=== PATIENT | male | born 1955 | race African-American/Black ===

== ENCOUNTER 2018-07-26 14:33 | Inpatient (IN) | payer OTHER ==
[2018-07-26] MEDS ORDERED: NACL 0.9% 1000 ML 1,000 ML IV ONE ×2 (14:46→16:30)
[2018-07-26] MEDS ORDERED: TYLENOL FEEDTUBE ONE (14:48)
--- NOTE | 2018-07-26 14:51 | Emergency Department Report ---
HPI - General Time Seen by Provider: 07/26/18 14:46 - HPI HPI: Room 1 The patient is a 62-year-old male presenting with chief complaint of dislodged trach tube. Patient presents to the ED after accidentally pulling out his tracheostomy tube. Patient denies complaints Location: [See above] Duration: [See above] Quality: [See above] Severity: [See above] Modifying factors: [see above] Context: [see above] Mode of transportation: [not driving] ED Past Medical Hx - Past Medical History Previous Medical History?: Yes Hx CVA: Yes Hx Heart Attack/AMI: Yes Additional medical history: metastatic brain cancer - Surgical History Past Surgical History?: Yes Additional Surgical History: tracheostomy. PEG tube - Family History Family history: no significant - Social History Smoking Status: Unknown if ever smoked Substance Use Type: None ED Review of Systems ROS: Stated complaint: TRACHEOSTOMY REPLACEMENT Other details as noted in HPI Constitutional: no symptoms reported Eyes: denies: eye pain ENT: denies: throat pain Respiratory: no symptoms reported Cardiovascular: denies: chest pain Endocrine: no symptoms reported Gastrointestinal: denies: abdominal pain Genitourinary: denies: dysuria Musculoskeletal: denies: back pain Neurological: denies: headache Physical Exam - Physical Exam Vital Signs: Vital Signs 07/26/18 14:35 Temperature 100.3 F H Pulse Rate 104 H Respiratory 11 L Rate Blood Pressure 94/58 O2 Sat by Pulse 96 Oximetry Physical Exam: GENERAL: The patient is well-developed well-nourished male lying on stretcher not appearing to be in acute distress. [] HEENT: Normocephalic. Atraumatic. Extraocular motions are intact. Patient has moist mucous membranes. NECK: Supple. Tracheostomy stoma patent CHEST/LUNGS: Clear to auscultation. There is no respiratory distress noted. HEART/CARDIOVASCULAR: Regular. There is tachycardia. There is no gallop rub or murmur. ABDOMEN: Abdomen is soft, nontender. Patient has normal bowel sounds. There is no abdominal distention. SKIN: There is no rash. There is no edema. There is no diaphoresis. NEURO: The patient is awake, alert, and oriented. The patient is cooperative. The patient has no focal neurologic deficits. The patient has normal speech MUSCULOSKELETAL: There is no evidence of acute injury. ED Course Vital Signs 07/26/18 14:35 Temperature 100.3 F H Pulse Rate 104 H Respiratory 11 L Rate Blood Pressure 94/58 O2 Sat by Pulse 96 Oximetry - Reevaluation(s) Reevaluation #1: 07/26/18 16:24 Informed by nursing the patient's blood pressure has decreased to 70s systolic - Consultations Consultation #1: 07/26/18 18:11 [facility] paged 07/26/18 18:[address] Owen of [facility]- may admit the patient at [facility] - Central Line Placement Right Femoral Consent Obtained: verbal consent Time Out Performed: No Patient Placed on Monitor/Pulse Ox: Yes MD Prep: mask, gown, gloves Central Line Prep: Chlorhexidine scrub Local Anesthesia Used: Lidocaine 1% Amount of Anesthesia Used (mls): 5 Ultrasound Used for Placement: No Central Line Lumen Inserted: triple Central Line Position: good blood return (from brown port only), other (brown port flushed and 2. Blue and white ports unable to withdraw blood or flush. Ports) Dressing Applied: Tegaderm Patient Tolerated Procedure: no complications Complications: none ED Medical Decision Making - Lab Data Result diagrams: 07/26/18 14:59 07/26/18 14:59 Laboratory Tests 07/26/18 07/26/18 07/26/18 14:59 14:59 16:29 WBC 9.6 RBC 3.75 Hgb 10.2 L Hct 31.9 L MCV 85 MCH 27 L MCHC 32 RDW 17.2 H Plt Count 320 Lymph % (Auto) 10.2 L Reynolds % (Auto) 15.0 H Eos % (Auto) 0.1 Baso % (Auto) 0.1 Lymph # 1.0 L Reynolds # 1.4 H Eos # 0.0 Baso # 0.0 Seg Neutrophils % 74.6 H Seg Neutrophils # 7.2 Sodium 138 Potassium 4.6 Chloride 98.0 Carbon Dioxide 34 H Anion Gap 11 BUN 19 Creatinine 0.5 L Estimated GFR > 60 BUN/Creatinine Ratio 38 Glucose 100 Lactic Acid 0.80 Calcium 8.0 L Urine Color Urine Turbidity Urine pH Ur Specific [place] Urine Protein Urine Glucose (UA) Urine Ketones Urine Blood Urine Nitrite Urine Bilirubin Urine Urobilinogen Ur Leukocyte Esterase Urine WBC (Auto) Urine RBC (Auto) U Epithel Cells (Auto) Urine Bacteria (Auto) Urine Mucus 07/26/18 17:40 WBC RBC Hgb Hct MCV MCH MCHC RDW Plt Count Lymph % (Auto) Reynolds % (Auto) Eos % (Auto) Baso % (Auto) Lymph # Reynolds # Eos # Baso # Seg Neutrophils % Seg Neutrophils # Sodium Potassium Chloride Carbon Dioxide Anion Gap BUN Creatinine Estimated GFR BUN/Creatinine Ratio Glucose Lactic Acid Calcium Urine Color [place] Urine Turbidity Cloudy Urine pH 6.0 Ur Specific [place] 1.029 Urine Protein 30 mg/dl Urine Glucose (UA) Neg Urine Ketones Tr Urine Blood Neg Urine Nitrite Neg Urine Bilirubin Neg Urine Urobilinogen 2.0 Ur Leukocyte Esterase Mod Urine WBC (Auto) 33.0 H Urine RBC (Auto) 2.0 U Epithel Cells (Auto) 1.0 Urine Bacteria (Auto) 4+ Urine Mucus 3+ - Radiology Data Radiology results: report reviewed (chest x-ray), image reviewed (chest x-ray) interpreted by me: Chest x-ray-right lower lobe haziness consistent with pneumonia [facility] [address] [place] [address] XRay Report Signed Patient: VALENTIN SANTILLAN MR#: [id number] : 1955 Acct:[id number] Age/Sex: 62 / M ADM Date: 07/26/18 Loc: ED Attending Dr: Ordering Physician: MEEK CRUZ MD Date of Service: 07/26/18 Procedure(s): XR chest 1V ap Accession Number(s): [id number] cc: MEEK CRUZ MD Fluoro Time In Minutes: PROCEDURE: XR CHEST 1V AP TECHNIQUE: Single view chest HISTORY: s/p trach tube replacement COMPARISONS: None FINDINGS: Tracheostomy tube with adequate position. Trachea midline. Heart size top normal. Atherosclerotic change aorta Coarse generalized interstitial prominence. Patchy airspace disease right base. Blunting right costophrenic sulcus. No pneumothorax. Skinfold over the right apex. No pneumomediastinum. Generalized osteopenia IMPRESSION: Tracheostomy tube with adequate position Coarse generalized interstitial prominence Patchy airspace disease right base Trace right effusion. This document is electronically signed by Ruiz Lehman MD., July 26 2018 04:28:02 PM ET Transcribed By: HJ Dictated By: RUIZ LEHMAN MD Electronically Authenticated By: RUIZ LEHMAN MD Signed Date/Time: 07/26/18 1629 DD/ 162 TD/TT: 07/26/18 162 Critical care attestation.: If time is entered above; I have spent that time in minutes in the direct care of this critically ill patient, excluding procedure time. ED Disposition Clinical Impression: Complication of tracheostomy tube, Pneumonia, Sepsis Disposition: OP ADMIT IP TO THIS HOSP Is pt being admited?: Yes Does the pt Need Aspirin: No Condition: Fair Instructions: Bacterial Pneumonia (ED) Time of Disposition: 18:24 (hospitalist notified (Dr Cassdiy))
[2018-07-26 15:39] LABS: Basophils % (Auto) 0.1 % (0.0-1.8); Eosinophils % (Auto) 0.1 % (0.0-4.3); Hematocrit 31.9 % (35.5-45.6); Hemoglobin 10.2 gm/dl (11.8-15.2); Lymphocytes % (Auto) 10.2 % (13.4-35.0); Mean Corpuscular HGB Conc 32 % (32-34); Mean Corpuscular Volume 85 fl (84-94); Monocytes # (Auto) 1.4 K/mm3 (0.0-0.8); Platelet Count 320 K/mm3 (140-440); Red Blood Count 3.75 M/mm3 (3.65-5.03); Red Cell Distribution Width 17.2 % (13.2-15.2)
[2018-07-26 15:53] LABS: BUN/Creatinine Ratio 38; Blood Urea Nitrogen 19 mg/dL (9-20); Hemolysis Index 0
[2018-07-26] MEDS ORDERED: ROCEPHIN/NS 1 GM/50 ML 1 GM/50 ML BAG IV ONE (16:23)
--- NOTE | 2018-07-26 16:29 | XRay Report ---
PROCEDURE: XR CHEST 1V AP TECHNIQUE: Single view chest HISTORY: s/p trach tube replacement COMPARISONS: None FINDINGS: Tracheostomy tube with adequate position. Trachea midline. Heart size top normal. Atherosclerotic change aorta Coarse generalized interstitial prominence. Patchy airspace disease right base. Blunting right costophrenic sulcus. No pneumothorax. Skinfold over the right apex. No pneumomediastinum. Generalized osteopenia IMPRESSION: Tracheostomy tube with adequate position Coarse generalized interstitial prominence Patchy airspace disease right base Trace right effusion. This document is electronically signed by Ruiz Contreras MD., July 26 2018 04:28:02 PM ET
[2018-07-26] MEDS ORDERED: LEVOPHED DRIP 4 MG/NS 250 ML 4 MG/250 ML BAG IV ONE ×2 (17:25→17:28)
[2018-07-26] MEDS ORDERED: ZITHROMAX 500 MG in NACL 0.9% 250ML 250 ML IV ONE (18:00)
[2018-07-26 18:01] LABS: Bacteria,Urine 4+ /HPF (Negative); Bilirubin,Urine NEG (Negative); Blood,Urine NEG (Negative); Color,Urine Amber (Yellow); Mucus,Urine 3+ /HPF
[2018-07-26] MEDS ORDERED: SODIUM CHLORIDE FLUSH SYRINGE 10 ML IV PRN (18:54)
--- NOTE | 2018-07-26 18:56 | History and Physical Report ---
History of Present Illness Chief complaint: Unresponsive History of present illness: 62 YO Male with Chronic Respiratory Failure S/P Trach and PEG Placement, Severe Malnutrition, CVA, Debility, Contracture, Metastatic Brain Cancer present to ED for evaluation. Pt is unresponsive, and in a vegetative state and unable to provide history. Pt history taken from ED staff. As per staff, the patient accidentally pulled out his trach today. EMS notified and patient transported to [facility]. Pt seen and evaluated in ED and found to have Acute on Chronic Respiratory Failure with secretions in his oral pharynx. Pt subsequently became hypotensive with systolic blood pressure in the 70's. Pt found to have suspected Aspiration Pneumonia as well as UTI, Encephalopathy. Pt admitted to ICU and initiated on Pneumonia protocol, and initiated on IV pressor support. No prior admissions for review. No medications listed for reconciliation at time of admission. - Past History Past Medical History: cancer, stroke, other (respiratory failure) Past Surgical History: Other (Trach/Peg) Social history: . denies: smoking, alcohol abuse, prescription drug abuse Family history: no significant family history (reviewed) Medications and Allergies Allergies Allergy/AdvReac Type Severity Reaction Status Date / Time Unable to Assess Allergy Verified 07/26/18 14:35 Active Meds: Active Medications Norepinephrine (Levophed Drip 4 Mg/Ns 250 Ml) 4 mg in 250 mls @ 7.5 mls/hr IV TITR ONE; Protocol Stop: 07/28/18 02:44 Last Titration: 07/26/18 18:32 Dose: 4 mcg/min, 15 mls/hr Documented by: Azithromycin 500 mg/ Sodium (Chloride) 250 mls @ 250 mls/hr IV ONCE ONE Stop: 07/26/18 18:59 Sodium Chloride (Sodium Chloride Flush Syringe 10 Ml) 10 ml IV BID ROSALIA Sodium Chloride (Sodium Chloride Flush Syringe 10 Ml) 10 ml IV PRN PRN PRN Reason: LINE FLUSH Review of Systems ROS unobtainable: due to mental status Exam - Constitutional Vitals: Temp Pulse Resp BP Pulse Ox 98.2 F 71 9 L 81/53 99 07/26/18 16:38 07/26/18 18:46 07/26/18 18:46 07/26/18 18:46 07/26/18 18:46 General appearance: Present: severe distress - EENT Eyes: Present: miosis ENT: hearing decreased - Neck Neck: Present: supple, normal ROM - Respiratory Respiratory effort: labored Respiratory: bilateral: diminished, rhonchi - Cardiovascular Rhythm: other (hypotensive/tachycardic) Heart Sounds: Present: S1 & S2. Absent: rub, click Peripheral Pulses: abnormal - Abdominal General gastrointestinal: Present: soft, non-distended, other (schaphoid, PEG in place) - Integumentary Integumentary: Present: clear, clammy, decreased turgor - Musculoskeletal Musculoskeletal: generalized weakness - Psychiatric Psychiatric: no appropriate mood/affect, no intact judgment & insight, no memory intact - Neurologic Neurologic: no CNII-XII intact, focal deficits, no moves all extremities, no gait normal Results - Labs CBC & Chem 7: 07/27/18 06:33 07/27/18 06:29 Labs: Abnormal lab results 07/26/18 07/26/18 07/26/18 Range/Units 14:59 14:59 17:40 Hgb 10.2 L (11.8-15.2) gm/dl Hct 31.9 L (35.5-45.6) % MCH 27 L (28-32) pg RDW 17.2 H (13.2-15.2) % Lymph % (Auto) 10.2 L (13.4-35.0) % Worth % (Auto) 15.0 H (0.0-7.3) % Lymph # 1.0 L (1.2-5.4) K/mm3 [place] # 1.4 H (0.0-0.8) K/mm3 Seg Neutrophils % 74.6 H (40.0-70.0) % Carbon Dioxide 34 H (22-30) mmol/L Creatinine 0.5 L (0.8-1.5) mg/dL Calcium 8.0 L (8.4-10.2) mg/dL Urine WBC (Auto) 33.0 H (0.0-6.0) /HPF Assessment and Plan - Patient Problems (1) Sepsis Current Visit: Yes Status: Acute Plan to address problem: Admit to ICU: Initiate Sepsis protocol: IVF resuscitation therapy, IV pressors to maintain MAP above 60, monitor uop q shift, blood cultures, urinalysis, serial lactic acid levels, The high probability of a clinically significant, sudden or life threatening deterioration of the [neuro, respiratory, renal] system(s) required my full and direct attention, intervention and personal management. The aggregate critical care time was [65] minutes. This time is in addition to time spent performing reported procedures but includes the following: [x] Data Review and interpretation [x] Patient assessment and monitoring of vital signs [x] Documentation [x] Medication orders and management (2) UTI (urinary tract infection) Current Visit: Yes Status: Acute Qualifiers: Urinary tract infection type: catheter-associated UTI Encounter type: initial encounter Plan to address problem: IV antibiotic therapy, urinalysis, blood cultures, urine culture, CBC (3) Encephalopathy Current Visit: Yes Status: Acute Plan to address problem: CT Head when medically stable, neuro checks, supportive care. (4) Complication of tracheostomy tube Current Visit: Yes Status: Acute Plan to address problem: Trach replaced in ED, Trach care as per nursing protocol. (5) Pneumonia Current Visit: Yes Status: Acute Qualifiers: Aspiration pneumonia type: due to gastric secretions Plan to address problem: RLL Pneumonia, suspected secondary to possible aspiration. IV antibiotic therapy, Pneumonia protocol, IV antibiotic therapy, supplemental oxygen, nebulizer therapy, NIPPV as clinically indicated. chest x ray (6) Respiratory failure Current Visit: Yes Status: Acute Qualifiers: Chronicity: acute on chronic Respiratory failure complication: hypoxia Qualified Code(s): J96.21 - Acute and chronic respiratory failure with hypoxia Plan to address problem: Supplemental oxygen, nebulizer therapy, Admit to ICU, repeat CXR as clinically indicated, NIPPV as clinically indicated (7) Severe malnutrition Current Visit: Yes Status: Acute Plan to address problem: Continue PEG tube feeding, supportive care, aspiration precautions. (8) DVT prophylaxis Current Visit: Yes Status: Acute Plan to address problem: SCD to BLE while in bed, prophylactic lovenox
[2018-07-26 19:27] LABS: Alanine Aminotransferase 6 units/L (7-56); Albumin 2.4 g/dL (3.9-5)
[2018-07-26 19:37] LABS: Bilirubin,Direct < 0.2 mg/dL (0-0.2)
[2018-07-26] MEDS ORDERED: LOVENOX SUB-Q SCH (22:00)
[2018-07-27] MEDS ORDERED: VASELINE LIP THERAPY TP ONE (01:15)
[2018-07-27] MEDS ORDERED: LEVOPHED DRIP 4 MG/NS 250 ML 4 MG/250 ML BAG IV ONE (03:06)
[2018-07-27 06:40] LABS: Basophils % (Auto) 0.3 % (0.0-1.8); Eosinophils % (Auto) 0.1 % (0.0-4.3); Hematocrit 35.3 % (35.5-45.6); Hemoglobin 11.5 gm/dl (11.8-15.2); Lymphocytes # (Auto) 0.8 K/mm3 (1.2-5.4); Lymphocytes % (Auto) 8.3 % (13.4-35.0); Mean Corpuscular HGB Conc 33 % (32-34); Mean Corpuscular Volume 84 fl (84-94); Monocytes % (Auto) 10.3 % (0.0-7.3); Platelet Count 358 K/mm3 (140-440); Red Cell Distribution Width 17.2 % (13.2-15.2)
[2018-07-27 07:07] LABS: Alanine Aminotransferase 8 units/L (7-56); Albumin 2.4 g/dL (3.9-5); BUN/Creatinine Ratio 40; Blood Urea Nitrogen 16 mg/dL (9-20); Calcium 8.1 mg/dL (8.4-10.2); Hemolysis Index 3
--- NOTE | 2018-07-27 11:02 | Progress Note ---
Assessment and Plan Assessment and plan: Sepsis. Continue sepsis protocol. IV fluid resuscitation. Wean IV pressors to maintain MAP greater than 60. Follow-up blood and urine cultures cultures. Check lactic acid level UTI. Follow-up urine cultures and continue IV antibiotics. Toxic metabolic encephalopathy. Patient also with underlying metastatic brain CA. Continue to treat underlying causes. Self decannulation. Chronic tracheostomy tube removed. Trach replaced in ED, Trach care as per nursing protocol. Aspiration pneumonia. Follow serial chest x-ray and continue antibiotic. Acute hypercapnic respiratory failure. ABG revealed PCO2 of 58.8. Etiology secondary to above. Supplemental oxygen, nebulizer therapy, NIPPV as clinically indicated. Oropharyngeal dysphagia. Continue PEG tube feeding, supportive care, aspiration precautions. The high probability of a clinically significant, sudden or life threatening det erioration of the [hemodynamic, respiratory] system(s) required my full and direct attention, intervention and personal management. The aggregate critical care time was [33] minutes. This time is in addition to time spent performing reported procedures but includes the following: [x] Data Review and interpretation [x] Patient assessment and monitoring of vital signs [x] Documentation [x] Medication orders and management History Interval history: 62 YO Male with Chronic Respiratory Failure S/P Trach and PEG Placement, Severe Malnutrition, CVA, Debility, Contracture, Metastatic Brain Cancer present to ED for evaluation and found by the admitting physician to be unresponsive ? vegetative state and unable to provide history. Pt history taken from ED staff. As per staff, the patient accidentally pulled out his trach today. EMS notified and patient transported to [facility]. Pt seen and evaluated in ED and found to have Acute on Chronic Respiratory Failure with secretions in his oral pharynx. Pt subsequently became hypotensive with systolic blood pressure in the 70's. Pt found to have suspected Aspiration Pneumonia as well as UTI, Encephalopathy. Pt admitted to ICU and initiated on Pneumonia protocol, and initiated on IV pressor support. No prior admissions for review. On my evaluation this morning, patient was noted to be agitated pulling at central line. Bilateral wrist restraints ordered. Patient currently on Levophed drip. Hospitalist Physical - Constitutional Vitals: Temp Pulse Resp BP Pulse Ox 98.2 F 86 17 114/76 94 07/26/18 16:38 07/27/18 10:30 07/27/18 10:30 07/27/18 10:30 07/27/18 10:30 General appearance: Present: severe distress - EENT Eyes: Present: PERRL, EOM intact ENT: hearing intact, clear oral mucosa, dentition normal - Neck Neck: Present: supple, normal ROM - Respiratory Respiratory effort: normal Respiratory: bilateral: CTA - Cardiovascular Rhythm: regular Heart Sounds: Present: S1 & S2. Absent: gallop, rub - Extremities Extremities: no ischemia, No edema, Full ROM - Abdominal General gastrointestinal: soft, non-tender, non-distended, normal bowel sounds - Integumentary Integumentary: Present: clear, warm, dry - Neurologic Neurologic: CNII-XII intact, moves all extremities Results - Labs CBC & Chem 7: 07/27/18 06:33 07/27/18 06:29 Labs: Laboratory Last Values WBC 9.5 K/mm3 (4.5-11.0) 07/27/18 06:33 RBC 4.20 M/mm3 (3.65-5.03) 07/27/18 06:33 Hgb 11.5 gm/dl (11.8-15.2) L 07/27/18 06:33 Hct 35.3 % (35.5-45.6) L 07/27/18 06:33 MCV 84 fl (84-94) 07/27/18 06:33 MCH 28 pg (28-32) 07/27/18 06:33 MCHC 33 % (32-34) 07/27/18 06:33 RDW 17.2 % (13.2-15.2) H 07/27/18 06:33 Plt Count 358 K/mm3 (140-440) 07/27/18 06:33 Lymph % (Auto) 8.3 % (13.4-35.0) L 07/27/18 06:33 [place] % (Auto) 10.3 % (0.0-7.3) H 07/27/18 06:33 Eos % (Auto) 0.1 % (0.0-4.3) 07/27/18 06:33 Baso % (Auto) 0.3 % (0.0-1.8) 07/27/18 06:33 Lymph # 0.8 K/mm3 (1.2-5.4) L 07/27/18 06:33 [place] # 1.0 K/mm3 (0.0-0.8) H 07/27/18 06:33 Eos # 0.0 K/mm3 (0.0-0.4) 07/27/18 06:33 Baso # 0.0 K/mm3 (0.0-0.1) 07/27/18 06:33 Seg Neutrophils % 81.0 % (40.0-70.0) H 07/27/18 06:33 Seg Neutrophils # 7.7 K/mm3 (1.8-7.7) 07/27/18 06:33 POC ABG pH 7.323 (7.35-7.45) L 07/26/18 20:56 POC ABG pCO2 58.8 (35-45) H 07/26/18 20:56 POC ABG pO2 100 (80-105) 07/26/18 20:56 POC ABG HCO3 30.5 (22-26 mml/L) 07/26/18 20:56 POC ABG Total CO2 32 (23-27mmol/L) 07/26/18 20:56 POC ABG O2 Sat 97 07/26/18 20:56 POC ABG Base Excess 4 ((-2) - (+3)mmol/L) 07/26/18 20:56 FiO2 50 % 07/26/18 20:56 Sodium 140 mmol/L (137-145) 07/27/18 06:29 Potassium 4.4 mmol/L (3.6-5.0) 07/27/18 06:29 Chloride 100.2 mmol/L (98-107) 07/27/18 06:29 Carbon Dioxide 30 mmol/L (22-30) 07/27/18 06:29 Anion Gap 14 mmol/L 07/27/18 06:29 BUN 16 mg/dL (9-20) 07/27/18 06:29 Creatinine 0.4 mg/dL (0.8-1.5) L 07/27/18 06:29 Estimated GFR > 60 ml/min 07/27/18 06:29 BUN/Creatinine Ratio 40 % 07/27/18 06:29 Glucose 81 mg/dL (75-100) 07/27/18 06:29 Lactic Acid 0.80 mmol/L (0.7-2.0) 07/26/18 16:29 Calcium 8.1 mg/dL (8.4-10.2) L 07/27/18 06:29 Total Bilirubin 0.20 mg/dL (0.1-1.2) 07/27/18 06:29 Direct Bilirubin < 0.2 mg/dL (0-0.2) 07/26/18 19:00 Indirect Bilirubin 0.0 mg/dL 07/26/18 19:00 AST 13 units/L (5-40) 07/27/18 06:29 ALT 8 units/L (7-56) 07/27/18 06:29 Alkaline Phosphatase 58 units/L (35-129) 07/27/18 06:29 Total Protein 6.8 g/dL (6.3-8.2) 07/27/18 06:29 Albumin 2.4 g/dL (3.9-5) L 07/27/18 06:29 Albumin/Globulin Ratio 0.5 % 07/27/18 06:29 Urine Color [place] (Yellow) 07/26/18 17:40 Urine Turbidity Cloudy (Clear) 07/26/18 17:40 Urine pH 6.0 (5.0-7.0) 07/26/18 17:40 Ur Specific [place] 1.029 (1.003-1.030) 07/26/18 17:40 Urine Protein 30 mg/dl mg/dL (Negative) 07/26/18 17:40 Urine Glucose (UA) Neg mg/dL (Negative) 07/26/18 17:40 Urine Ketones Tr mg/dL (Negative) 07/26/18 17:40 Urine Blood Neg (Negative) 07/26/18 17:40 Urine Nitrite Neg (Negative) 07/26/18 17:40 Urine Bilirubin Neg (Negative) 07/26/18 17:40 Urine Urobilinogen 2.0 mg/dL (<2.0) 07/26/18 17:40 Ur Leukocyte Esterase Mod (Negative) 07/26/18 17:40 Urine WBC (Auto) 33.0 /HPF (0.0-6.0) H 07/26/18 17:40 Urine RBC (Auto) 2.0 /HPF (0.0-6.0) 07/26/18 17:40 U Epithel Cells (Auto) 1.0 /HPF (0-13.0) 07/26/18 17:40 Urine Bacteria (Auto) 4+ /HPF (Negative) 07/26/18 17:40 Urine Mucus 3+ /HPF 07/26/18 17:40 Active Medications - Current Medications Current Medications: Generic Name Dose Route Start Last Admin Trade Name Freq PRN Reason Stop Dose Admin Enoxaparin Sodium 40 mg 07/26/18 22:00 07/26/18 23:16 Lovenox SUB-Q 40 mg QDAY@2200 ROSALIA Administration Norepinephrine 4 mg in 250 mls @ 7.5 mls/hr 07/26/18 17:25 07/27/18 09:47 Levophed Drip 4 Mg/Ns 250 Ml IV 07/28/18 02:44 2 mcg/min TITR ONE 7.5 mls/hr Titration Protocol 2 MCG/MIN Sodium Chloride 10 ml 07/26/18 22:00 Sodium Chloride Flush Syringe 10 Ml IV BID ROSALIA Sodium Chloride 10 ml 07/26/18 18:54 Sodium Chloride Flush Syringe 10 Ml IV PRN PRN LINE FLUSH
[2018-07-27] MEDS: SODIUM CHLORIDE FLUSH SYRINGE 10 ML IV SCH ×2 (11:05→22:36)
[2018-07-27] MEDS ORDERED: HALDOL ONE (11:48)
--- NOTE | 2018-07-27 12:49 | Consultation ---
History of Present Illness Consult date: 07/27/18 Requesting physician: MONIQUE MAN Reason for consult: other (chronic respiratory failure.) History of present illness: 62 y/o male with brain cancer, currently on home hospice with [facility], brought in to ED secondary to dislodgement of trach. Trach replaced but apparently was hypotensive and required levophed. This has since been weaned off. Patient is somewhat agitated in the bed but awake and alert. Not sure how much Croatian he understands. No family present. Currently on T-piece Past History Past Medical History: cancer, stroke, other (respiratory failure) Past Surgical History: Other (Trach/Peg) Social history: . denies: smoking, alcohol abuse, prescription drug abuse Family history: no significant family history (reviewed) Medications and Allergies Allergies Allergy/AdvReac Type Severity Reaction Status Date / Time Unable to Assess Allergy Verified 07/26/18 14:35 Home Medications Medication Instructions Recorded Confirmed Last Taken Type Aspirin 81 mg PO QDAY 07/27/18 07/27/18 07/26/18 History Carvedilol [Coreg] 12.5 mg PO BID 07/27/18 07/27/18 07/26/18 History Clopidogrel [Plavix] 75 mg PO QDAY 07/27/18 07/27/18 07/26/18 History Gabapentin [Neurontin] 300 mg PO BID 07/27/18 07/27/18 07/26/18 History Melatonin 3 mg PO QHS 07/27/18 07/27/18 07/26/18 History Active Meds: Active Medications Enoxaparin Sodium (Lovenox) 40 mg SUB-Q QDAY@2200 [facility] Last Admin: 07/26/18 23:16 Dose: 40 mg Documented by: Norepinephrine (Levophed Drip 4 Mg/Ns 250 Ml) 4 mg in 250 mls @ 7.5 mls/hr IV TITR ONE; Protocol Stop: 07/28/18 02:44 Last Titration: 07/27/18 11:05 Dose: 0 mcg/min, 0 mls/hr Documented by: Sodium Chloride (Sodium Chloride Flush Syringe 10 Ml) 10 ml IV BID [facility] Sodium Chloride (Sodium Chloride Flush Syringe 10 Ml) 10 ml IV PRN PRN PRN Reason: LINE FLUSH Review of Systems ROS unobtainable: due to endotracheal tube (due to trach, unable to speak) Physical Examination Vital signs: Vital Signs Temp Pulse Resp BP Pulse Ox 100.3 F H 104 H 11 L 94/58 96 07/26/18 14:35 07/26/18 14:35 07/26/18 14:35 07/26/18 14:35 07/26/18 14:35 General appearance: alert, agitated, other (cachectic) Eyes: non-icteric ENT: oropharynx moist Neck: supple, no JVD Ascultation: Right: rales (base), Bilateral: diminished breath sounds Percussion: Bilateral: not dull Cardiovascular: regular rate and rhythm Gastrointestinal: normoactive bowel sounds Results - Laboratory Findings CBC and BMP: 07/27/18 06:33 07/27/18 06:29 ABG POC ABG pH 7.323 (7.35-7.45) L 07/26/18 20:56 POC ABG pCO2 58.8 (35-45) H 07/26/18 20:56 POC ABG pO2 100 (80-105) 07/26/18 20:56 POC ABG HCO3 30.5 (22-26 mml/L) 07/26/18 20:56 POC ABG Total CO2 32 (23-27mmol/L) 07/26/18 20:56 POC ABG O2 Sat 97 07/26/18 20:56 Abnormal lab findings: Abnormal Labs 07/26/18 07/26/18 07/26/18 14:59 14:59 17:40 Hgb 10.2 L Hct 31.9 L MCH 27 L RDW 17.2 H Lymph % (Auto) 10.2 L [place] % (Auto) 15.0 H Lymph # 1.0 L [place] # 1.4 H Seg Neutrophils % 74.6 H POC ABG pH POC ABG pCO2 Carbon Dioxide 34 H Creatinine 0.5 L Calcium 8.0 L ALT Albumin Urine WBC (Auto) 33.0 H 07/26/18 07/26/18 07/27/18 19:00 20:56 06:29 Hgb Hct MCH RDW Lymph % (Auto) [place] % (Auto) Lymph # [place] # Seg Neutrophils % POC ABG pH 7.323 L POC ABG pCO2 58.8 H Carbon Dioxide Creatinine 0.4 L Calcium 8.1 L ALT 6 L Albumin 2.4 L 2.4 L Urine WBC (Auto) 07/27/18 06:33 Hgb 11.5 L Hct 35.3 L MCH RDW 17.2 H Lymph % (Auto) 8.3 L [place] % (Auto) 10.3 H Lymph # 0.8 L [place] # 1.0 H Seg Neutrophils % 81.0 H POC ABG pH POC ABG pCO2 Carbon Dioxide Creatinine Calcium ALT Albumin Urine WBC (Auto) - Diagnostic Findings Chest x-ray: image reviewed (right lower lobe airspace disease) Assessment and Plan 62 y/o male with dislodged trach and possible aspiration pneumonitis. 1. No white count, no fever. Will continue to monitor clinically. Ok with holding on abx therapy right now. 2. Pressors off. 3. Feed patient 4. Transfer to floor after monitoring a few hours off levophed.
[2018-07-27] MEDS ORDERED: HALDOL IV PRN (13:24)
[2018-07-27] MEDS ORDERED: HALDOL IV ONE (14:00)
[2018-07-27] MEDS ORDERED: VASELINE LIP THERAPY TP PRN (14:03)
--- NOTE | 2018-07-27 23:11 | XRay Report ---
PROCEDURE: XR CHEST 1V AP TECHNIQUE: Chest radiograph single view. HISTORY: difficulty breathing COMPARISONS: 07/26/2018 . FINDINGS: There is prominence of interstitial markings is again noted without interval change. Patchy densities are noted in the right upper and lower lungs and left retrocardiac region. Pleural spaces are clear. Cardiac size is upper limit of normal. A tracheostomy tube is in place. Lungs are hyperinflated. IMPRESSION: Patchy densities in bilateral lungs are suspicious for areas of pneumonia. Prominent interstitial markings may represent interstitial 5 cm versus interstitial edema. COPD This document is electronically signed by Tyler Quiroz MD., July 27 2018 11:08:54 PM ET
[2018-07-28 04:22] VITALS: BP 126/66
[2018-07-28 07:28] LABS: Hematocrit 36.7 % (35.5-45.6); Hemoglobin 11.9 gm/dl (11.8-15.2); Mean Corpuscular HGB Conc 32 % (32-34); Mean Corpuscular Volume 85 fl (84-94); Platelet Count 383 K/mm3 (140-440); Red Blood Count 4.34 M/mm3 (3.65-5.03); Red Cell Distribution Width 17.2 % (13.2-15.2)
[2018-07-28 07:52] LABS: BUN/Creatinine Ratio 35; Blood Urea Nitrogen 21 mg/dL (9-20); Calcium 8.7 mg/dL (8.4-10.2); Hemolysis Index 0
[2018-07-28 09:51] LABS: Anisocytosis Few; Basophils % (Manual) 0 % (0.0-1.8); Eosinophils % (Manual) 0 % (0.0-4.3); Total Cells Counted 100
[2018-07-28 09:52] LABS: Platelet Estimate Consistent w Auto
--- NOTE | 2018-07-28 10:44 | Progress Note ---
Hospitalist Physical - Constitutional Vitals: Temp Pulse Resp BP Pulse Ox 98.4 F 138 H 22 126/66 91 07/28/18 04:21 07/28/18 04:21 07/28/18 04:21 07/28/18 04:21 07/28/18 06:34 General appearance: Present: severe distress Results - Labs CBC & Chem 7: 07/28/18 07:13 07/28/18 07:13 Labs: Laboratory Last Values WBC 19.5 K/mm3 (4.5-11.0) H 07/28/18 07:13 RBC 4.34 M/mm3 (3.65-5.03) 07/28/18 07:13 Hgb 11.9 gm/dl (11.8-15.2) 07/28/18 07:13 Hct 36.7 % (35.5-45.6) 07/28/18 07:13 MCV 85 fl (84-94) 07/28/18 07:13 MCH 27 pg (28-32) L 07/28/18 07:13 MCHC 32 % (32-34) 07/28/18 07:13 RDW 17.2 % (13.2-15.2) H 07/28/18 07:13 Plt Count 383 K/mm3 (140-440) 07/28/18 07:13 Lymph % (Auto) 8.3 % (13.4-35.0) L 07/27/18 06:33 [place] % (Auto) 10.3 % (0.0-7.3) H 07/27/18 06:33 Eos % (Auto) 0.1 % (0.0-4.3) 07/27/18 06:33 Baso % (Auto) 0.3 % (0.0-1.8) 07/27/18 06:33 Lymph # 0.8 K/mm3 (1.2-5.4) L 07/27/18 06:33 [place] # 1.0 K/mm3 (0.0-0.8) H 07/27/18 06:33 Eos # 0.0 K/mm3 (0.0-0.4) 07/27/18 06:33 Baso # 0.0 K/mm3 (0.0-0.1) 07/27/18 06:33 Add Manual Diff Complete 07/28/18 07:13 Total Counted 100 07/28/18 07:13 Seg Neutrophils % Paving Block Cutter 07/28/18 07:13 Seg Neuts % (Manual) 89.0 % (40.0-70.0) H 07/28/18 07:13 Band Neutrophils % 0 % 07/28/18 07:13 Lymphocytes % (Manual) 7.0 % (13.4-35.0) L 07/28/18 07:13 Reactive Lymphs % (Man) 0 % 07/28/18 07:13 Monocytes % (Manual) 4.0 % (0.0-7.3) 07/28/18 07:13 Eosinophils % (Manual) 0 % (0.0-4.3) 07/28/18 07:13 Basophils % (Manual) 0 % (0.0-1.8) 07/28/18 07:13 Metamyelocytes % 0 % 07/28/18 07:13 Myelocytes % 0 % 07/28/18 07:13 Promyelocytes % 0 % 07/28/18 07:13 Blast Cells % 0 % 07/28/18 07:13 Nucleated RBC % Not Reportable 07/28/18 07:13 Seg Neutrophils # 7.7 K/mm3 (1.8-7.7) 07/27/18 06:33 Seg Neutrophils # Man 17.4 K/mm3 (1.8-7.7) H 07/28/18 07:13 Band Neutrophils # 0.0 K/mm3 07/28/18 07:13 Lymphocytes # (Manual) 1.4 K/mm3 (1.2-5.4) 07/28/18 07:13 Abs React Lymphs (Man) 0.0 K/mm3 07/28/18 07:13 Monocytes # (Manual) 0.8 K/mm3 (0.0-0.8) 07/28/18 07:13 Eosinophils # (Manual) 0.0 K/mm3 (0.0-0.4) 07/28/18 07:13 Basophils # (Manual) 0.0 K/mm3 (0.0-0.1) 07/28/18 07:13 Metamyelocytes # 0.0 K/mm3 07/28/18 07:13 Myelocytes # 0.0 K/mm3 07/28/18 07:13 Promyelocytes # 0.0 K/mm3 07/28/18 07:13 Blast Cells # 0.0 K/mm3 07/28/18 07:13 WBC Morphology Not Reportable 07/28/18 07:13 Hypersegmented Neuts Not Reportable 07/28/18 07:13 Hyposegmented Neuts Not Reportable 07/28/18 07:13 Hypogranular Neuts Not Reportable 07/28/18 07:13 Smudge Cells Not Reportable 07/28/18 07:13 Toxic Granulation Not Reportable 07/28/18 07:13 Toxic Vacuolation Not Reportable 07/28/18 07:13 Dohle Bodies Not Reportable 07/28/18 07:13 Pelger-Huet Anomaly Not Reportable 07/28/18 07:13 Ananth Rods Not Reportable 07/28/18 07:13 Platelet Estimate Consistent w auto 07/28/18 07:13 Clumped Platelets Not Reportable 07/28/18 07:13 Plt Clumps, EDTA Not Reportable 07/28/18 07:13 Large Platelets Not Reportable 07/28/18 07:13 Giant Platelets Not Reportable 07/28/18 07:13 Platelet Satelliting Not Reportable 07/28/18 07:13 Plt Morphology Comment Not Reportable 07/28/18 07:13 RBC Morphology Not Reportable 07/28/18 07:13 Dimorphic RBCs Not Reportable 07/28/18 07:13 Polychromasia Not Reportable 07/28/18 07:13 Hypochromasia Not Reportable 07/28/18 07:13 Poikilocytosis Not Reportable 07/28/18 07:13 Anisocytosis Few 07/28/18 07:13 Microcytosis Not Reportable 07/28/18 07:13 Macrocytosis Not Reportable 07/28/18 07:13 Spherocytes Not Reportable 07/28/18 07:13 Pappenheimer Bodies Not Reportable 07/28/18 07:13 Sickle Cells Not Reportable 07/28/18 07:13 Target Cells Not Reportable 07/28/18 07:13 Tear Drop Cells Not Reportable 07/28/18 07:13 Ovalocytes Not Reportable 07/28/18 07:13 Helmet Cells Not Reportable 07/28/18 07:13 Shetty-Hamberg Bodies Not Reportable 07/28/18 07:13 [place] Rings Not Reportable 07/28/18 07:13 Bi Cells Not Reportable 07/28/18 07:13 Bite Cells Not Reportable 07/28/18 07:13 Crenated Cell Not Reportable 07/28/18 07:13 Elliptocytes Not Reportable 07/28/18 07:13 Acanthocytes (Spur) Not Reportable 07/28/18 07:13 Rouleaux Not Reportable 07/28/18 07:13 Hemoglobin C Crystals Not Reportable 07/28/18 07:13 Schistocytes Not Reportable 07/28/18 07:13 Malaria parasites Not Reportable 07/28/18 07:13 Adi Bodies Not Reportable 07/28/18 07:13 Hem Pathologist Commnt No 07/28/18 07:13 POC ABG pH 7.323 (7.35-7.45) L 07/26/18 20:56 POC ABG pCO2 58.8 (35-45) H 07/26/18 20:56 POC ABG pO2 100 (80-105) 07/26/18 20:56 POC ABG HCO3 30.5 (22-26 mml/L) 07/26/18 20:56 POC ABG Total CO2 32 (23-27mmol/L) 07/26/18 20:56 POC ABG O2 Sat 97 07/26/18 20:56 POC ABG Base Excess 4 ((-2) - (+3)mmol/L) 07/26/18 20:56 FiO2 50 % 07/26/18 20:56 Sodium 148 mmol/L (137-145) H D 07/28/18 07:13 Potassium 4.6 mmol/L (3.6-5.0) 07/28/18 07:13 Chloride 102.6 mmol/L (98-107) 07/28/18 07:13 Carbon Dioxide 29 mmol/L (22-30) 07/28/18 07:13 Anion Gap 21 mmol/L 07/28/18 07:13 BUN 21 mg/dL (9-20) H 07/28/18 07:13 Creatinine 0.6 mg/dL (0.8-1.5) L 07/28/18 07:13 Estimated GFR > 60 ml/min 07/28/18 07:13 BUN/Creatinine Ratio 35 % 07/28/18 07:13 Glucose 96 mg/dL (75-100) 07/28/18 07:13 POC Glucose 75 (70-105) 07/27/18 12:05 Lactic Acid 0.80 mmol/L (0.7-2.0) 07/26/18 16:29 Calcium 8.7 mg/dL (8.4-10.2) 07/28/18 07:13 Total Bilirubin 0.20 mg/dL (0.1-1.2) 07/27/18 06:29 Direct Bilirubin < 0.2 mg/dL (0-0.2) 07/26/18 19:00 Indirect Bilirubin 0.0 mg/dL 07/26/18 19:00 AST 13 units/L (5-40) 07/27/18 06:29 ALT 8 units/L (7-56) 07/27/18 06:29 Alkaline Phosphatase 58 units/L (35-129) 07/27/18 06:29 Total Protein 6.8 g/dL (6.3-8.2) 07/27/18 06:29 Albumin 2.4 g/dL (3.9-5) L 07/27/18 06:29 Albumin/Globulin Ratio 0.5 % 07/27/18 06:29 Urine Color [place] (Yellow) 07/26/18 17:40 Urine Turbidity Cloudy (Clear) 07/26/18 17:40 Urine pH 6.0 (5.0-7.0) 07/26/18 17:40 Ur Specific [place] 1.029 (1.003-1.030) 07/26/18 17:40 Urine Protein 30 mg/dl mg/dL (Negative) 07/26/18 17:40 Urine Glucose (UA) Neg mg/dL (Negative) 07/26/18 17:40 Urine Ketones Tr mg/dL (Negative) 07/26/18 17:40 Urine Blood Neg (Negative) 07/26/18 17:40 Urine Nitrite Neg (Negative) 07/26/18 17:40 Urine Bilirubin Neg (Negative) 07/26/18 17:40 Urine Urobilinogen 2.0 mg/dL (<2.0) 07/26/18 17:40 Ur Leukocyte Esterase Mod (Negative) 07/26/18 17:40 Urine WBC (Auto) 33.0 /HPF (0.0-6.0) H 07/26/18 17:40 Urine RBC (Auto) 2.0 /HPF (0.0-6.0) 07/26/18 17:40 U Epithel Cells (Auto) 1.0 /HPF (0-13.0) 07/26/18 17:40 Urine Bacteria (Auto) 4+ /HPF (Negative) 07/26/18 17:40 Urine Mucus 3+ /HPF 07/26/18 17:40 Active Medications - Current Medications Current Medications: Generic Name Dose Route Start Last Admin Trade Name Freq PRN Reason Stop Dose Admin Haloperidol Lactate 5 mg 07/27/18 13:24 Haldol IV Q6H PRN Agitation Hydrophilic Ointment 1 applic 07/27/18 14:03 Vaseline Lip Therapy TP DIRECT PRN DRY LIPS Sodium Chloride 10 ml 07/26/18 22:00 07/27/18 22:36 Sodium Chloride Flush Syringe 10 Ml IV 10 ml BID [facility]IA Administration Sodium Chloride 10 ml 07/26/18 18:54 Sodium Chloride Flush Syringe 10 Ml IV PRN PRN LINE FLUSH
--- NOTE | 2018-07-28 11:11 | Death Note ---
Note Date of : 07/28/18 Time of : 11:08 Time Pronounced: :08
--- NOTE | 2018-07-28 11:11 | Event Note ---
Date: 07/28/18 Lizzie alta called s/p cardiac arrest. PEA. Lizzie alta run per protocol. Code run for about 20 mins during which CPR was done, he was given several rounds of Epinephrine, Bicarb. However, patient did not survive. He was pronounced at 11:08am
--- NOTE | 2018-07-28 11:12 | Death Summary ---
Summary - Providers Date of service: 07/28/18 Consults: 07/27/18 11:08 Consult to Physician [CONS] Routine Comment: Consulting Provider: MADISON MONACO Physician Instructions: Reason For Exam: critical care 07/28/18 10:43 Consult to Dietitian/Nutrition [CONS] Routine Physician Instructions: Reason For Exam: Reason for Consult: Write/Manage Tube Feeding Attending: NAT JONES - summary Date of admission: 07/26/18 18:54 Date of : 07/28/18 Procedures/treatments rendered: Patient is 62 yo with chronic respiratory failure s/p trach and PEG Placement, severe malnutrition, CVA, debility, Contracture, history of benign brain tumor s/p resection. He was brought to ED because he pulled out tracheostomy tube.. EMS notified and patient transported to [facility]. Patient was seen and evaluated in ED and found to have Acute on Chronic Respiratory Failure, sepsis due to pneumonia, UTI. Patient was hypotensive with systolic blood pressure in the 70's. He was started on Ceftriaxone, Azithromycin and Levopghed and admitted to ICU. He was evaluated by Mechanical Research Engineer. His BP improved, was weaned off Levophed and transferred to Telemetry. However on morning of 07/28/18, patient had cardioresp arrest.Code blue called s/p cardiac arrest. He had PEA. Code blue run per protocol. Code run for about 20 mins during which CPR was done, he was given several rounds of Epinephrine, Bicarb. However, patient did not survive. He was pronounced at 11:08am on 07/28/18. I discussed with daughter at bedside afterwards. Total time spent on discharge, 31 mins - Final diagnosis (1) Acute and chronic respiratory failure Note: Final diagnosis: (2) Benign brain tumor Note: Final diagnosis: (3) Pneumonia Qualifiers: Aspiration pneumonia type: due to gastric secretions Note: Final diagnosis: (4) Sepsis Note: Final diagnosis: (5) Severe malnutrition Note: Final diagnosis: (6) UTI (urinary tract infection) Qualifiers: Urinary tract infection type: catheter-associated UTI Encounter type: initial encounter Note: Final diagnosis:
== END 2018-07-28 14:50 | DRG 871 ==
LOC: EDSEX → ED 14:33 → CC1 18:54 → 3A 07-27 15:52
PROVIDERS: ADMIT Internal Medicine; ATTEND Internal Medicine
PROC: 0B21XFZ Change Tracheostomy Device in Trachea, External Approach (ICD-10-PCS; principal; 2018-07-26)
PROC: 06HY33Z Insertion of Infusion Device into Lower Vein, Percutaneous Approach (ICD-10-PCS; 2018-07-26)
PROC: 4A033R1 Measurement of Arterial Saturation, Peripheral, Percutaneous Approach (ICD-10-PCS; 2018-07-26)
DX: A41.9 Sepsis, unspecified organism (principal); J96.21 Acute and chronic respiratory failure with hypoxia; E43 Unspecified severe protein-calorie malnutrition; G92 Toxic encephalopathy; J69.0 Pneumonitis due to inhalation of food and vomit; J96.22 Acute and chronic respiratory failure with hypercapnia; N39.0 Urinary tract infection, site not specified; T83.511A Infection and inflammatory reaction due to indwelling urethral catheter, initial encounter; J95.09 Other tracheostomy complication; Z68.1 Body mass index [BMI] 19.9 or less, adult; Y84.6 Urinary catheterization as the cause of abnormal reaction of the patient, or of later complication, without mention of misadventure at the time of the procedure; R13.12 Dysphagia, oropharyngeal phase; I46.9 Cardiac arrest, cause unspecified; Y83.8 Other surgical procedures as the cause of abnormal reaction of the patient, or of later complication, without mention of misadventure at the time of the procedure; Z93.1 Gastrostomy status; Y92.098 Other place in other non-institutional residence as the place of occurrence of the external cause; Z86.73 Personal history of transient ischemic attack (TIA), and cerebral infarction without residual deficits; Z79.82 Long term (current) use of aspirin; Z79.899 Other long term (current) drug therapy; I25.2 Old myocardial infarction
CPT/HCPCS: 36415; 36600; 71045; 80048; 80053; 80076; 81001; 82140; 82803; 82962; 85007; 85025; 87040; 87116; 94760; G0378; J0456; J0696; J1630; J7030; J7050